=== PATIENT | male | born 1965 | race American Indian/Alaskan Native ===

== ENCOUNTER 2024-05-04 14:25 | Outpatient (AMB) | payer MEDICAID, SELFPAY ==
[2024-05-04 14:47] VITALS: BP 122/78; PULSE 85; RESP 19; TEMP 36.8; O2SAT 94; BMI 36.4
--- NOTE | 2024-05-04 14:47 | PD.ORTHCLVIS ---
Vital signs 05/04/24 14:47 Height 1.8 m Height Method Stated Weight 118.501 kg Weight Measurement Method Standing Scale BMI 36.4 BP 122/78 Blood Pressure Source Automatic Cuff Blood Pressure Location Right Upper Arm Position Sitting Respiration 19 Pulse 85 Pulse Source Monitor Temp 98.3 F Temp Source Temporal Artery Scan Pulse Oximetry (%) 94 L Oxygen Delivery Method Room Air Med/Allergies Allergies & Medications Allergies No Known Allergies Allergy (Verified 05/04/24 14:48) Medication Reconciliation Unobtainable 05/04/24 [History Confirmed 05/04/24] Subjective Visit Visit for: new patient, follow up visit and knee (BILATERAL) Immunization / Flu Flu Vaccine in the Last 12 Months: No Flu Vaccine Exclusion Criteria: Refused by Patient History of Present Illness Chief complaint: BILATERAL KNEE PAIN Date of injury / onset of symptoms: LEFT (7YEARS) RIGHT (4MONTHS) Patient is a pleasant 59-year-old male with right knee pain worse than the left. This been ongoing for over 6 months. He is an avid [employer] and injured it while bowling. He has tried ibuprofen. Has not had any injections within the last 6 years. Personal History Occupation: RETIRED Hobbies: BOWLING/GOLF Pain Pain level (0-10): 2 Pain duration: COMES AND GOES Pain location: inside (medial) and other (specify) (DISCOMFORT) Pain quality: aching and other (specify) (POPPING) Pain timing: increases with activity Associated signs & symptoms: weakness Ambulatory data Ambulatory device: none Treatments Number of previous injections: 2 (LEFT KNEE) Improvement with previous injections: No Improvement with PT: No Improvement with NSAIDS: no Review of Systems Review of Systems: All systems negative unless otherwise noted in HPI. Exam Exam Patient is in no acute distress and is cooperative with the examination today. Breathing is nonlabored. In no respiratory distress. Bilateral extremities were evaluated and demonstrates sensation intact to light touch. Palpable pedal pulses are present. No significant edema is present. Bilateral hips were examined. The patient has no pain with log roll of the hips. Internal rotation to 30 degrees and external rotation to 30 degrees is painless. Negative FADIR. The left knee was examined. The left knee is in [varus] alignment. Range of motion from [0-115] degrees. Knee is stable to varus and valgus as well as AP translation with <5mm. Patient has a [negative] McMurrays. There is [no] pain with patellofemoral compression and [no] crepitus noted. The knee is [tender] to palpation [medially]. The right knee was also examined. The right knee is in [varus] alignment. Range of motion from [0-120] degrees. Knee is stable to varus and valgus as well as AP translation with <5mm. Patient has a [negative] McMurrays. There is [no] pain with patellofemoral compression and [no] crepitus noted. The knee is [tender] to palpation [medially]. Assessment and Plan Problem List (1) Bilateral knee pain: Status: Acute Plan: Patient is a 59-year-old male with bilateral knee pain and bilateral knee arthritis. We discussed nonoperative and operative options. I would like to for start by getting weightbearing x-rays to see the severity of the arthritis. We will likely continue with conservative treatment at the next visit. I will also likely prescribe him anti-inflammatories (2) Degenerative arthritis of knee, bilateral: Status: Acute Office Procedures GNS Level of Care Nursing/Assessment Patient Status: Initial/New Patient Nursing Assessment/Reassesment: Medication Reconciliation, Update PMH in EMR and Vital Signs Coordination of Care: Complex Care and Chronic Disease 1-5, Education Complex Pt/Fam, Consent,records obtained, informed consent, 1 Ins Authorization, Lab and Imaging orders, Results/Orders obtained and Staff clarify orders New Patient Charge New Patient Point Assignment: 1124 New Patient Point Charge: TERRA COTTA ROOFER Level 4 ([id number]) Past Medical History Past Medical History Have you ever been diagnosed with any of the following: Respiratory Problems Smoking: No Smoking Exposure: No
== END 2024-05-04 15:06 | disposition home or self-care (01) ==
LOC: HODSRG 14:25
PROVIDERS: PCP Physician Assistant; Referring Provider Physician Assistant; Supervising Provider Orthopaedic Surgery Adult Reconstructive Orthopaedic Surgery; Visit Provider Orthopaedic Surgery Adult Reconstructive Orthopaedic Surgery
DX: M25.562 Pain in left knee (principal); M25.561 Pain in right knee; M17.0 Bilateral primary osteoarthritis of knee
CPT/HCPCS: 99204; G0463

== ENCOUNTER 2024-06-03 10:13 | Outpatient (AMB) | payer MEDICAID, SELFPAY ==
[2024-06-03 10:49] VITALS: BP 97/64; PULSE 83; RESP 18; TEMP 36.1; O2SAT 94; BMI 35.0
--- NOTE | 2024-06-03 10:49 | RHCORTHONT_ITS ---
Vital signs 06/03/24 10:49 Height 1.8 m Height Method Stated Weight 113.54 kg Weight Measurement Method Standing Scale BMI 35.0 BP 97/64 Blood Pressure Source Automatic Cuff Blood Pressure Location Right Upper Arm Position Sitting Respiration 18 Pulse 83 Pulse Source Monitor Temp 96.9 F Temp Source Temporal Artery Scan Pulse Oximetry (%) 94 L Oxygen Delivery Method Room Air Med/Allergies Allergies & Medications Allergies No Known Allergies Allergy (Verified 06/03/24 10:50) Medication Reconciliation meloxicam 7.5 mg tablet 7.5 mg PO QDAY #45 tabs 06/03/24 [Rx] Exam Exam Patient is in no acute distress and is cooperative with the examination today. Breathing is nonlabored. In no respiratory distress. Bilateral extremities were evaluated and demonstrates sensation intact to light touch. Palpable pedal pulses are present. No significant edema is present. Bilateral hips were examined. The patient has no pain with log roll of the hips. Internal rotation to 30 degrees and external rotation to 30 degrees is painless. Negative FADIR. The left knee was examined. The left knee is in [varus] alignment. Range of motion from [0-115] degrees. Knee is stable to varus and valgus as well as AP translation with <5mm. Patient has a [negative] McMurrays. There is [no] pain with patellofemoral compression and [no] crepitus noted. The knee is [tender] to palpation [medially]. The right knee was also examined. The right knee is in [varus] alignment. Range of motion from [0-120] degrees. Knee is stable to varus and valgus as well as AP translation with <5mm. Patient has a [negative] McMurrays. There is [no] pain with patellofemoral compression and [no] crepitus noted. The knee is [tender] to palpation [medially]. X-rays demonstrate left greater than right medial arthritis. There is joint space narrowing Assessment and Plan Problem List (1) Bilateral knee pain: Status: Acute Plan: Patient is a 59-year-old male with bilateral knee pain and bilateral knee arthritis. We discussed nonoperative Options for his moderate arthritis. We discussed meloxicam and anti-inflammatories. We can give him a cortisone injection if needed. He would like to hold off on it for now. (2) Degenerative arthritis of knee, bilateral: Status: Acute Office Procedures GNS Level of Care Nursing/Assessment Patient Status: Established Patient Nursing Assessment/Reassesment: Medication Reconciliation, Update PMH in EMR and Vital Signs Coordination of Care: Complex Care and Chronic Disease 1-5, Education Complex Pt/Fam, Consent,records obtained, informed consent, Results/Orders obtained and Staff clarify orders Established Patient Charge Established Patient Point Assignment: 95 Established Patient Point Charge: EP Level 3 (80-115) MA Intake Visit Data Collection New Patient or Established: Established Patient (seen at [facility] within 3 years) Reason for Visit:: F/U XRAYS Seen by Clinical Staff ONLY (RN/MA): No Verbal consent obtained for Telemed visit?: No Coast[employer] Officer Required: No PCP or OBGYN visit in last 3 months: Yes Hx Now: No Do You Feel Safe at Home: Yes Authorities Contacted: N/A Questionairres Past Medical History Past Medical History Have you ever been diagnosed with any of the following: Respiratory Problems Smoking: No Smoking Exposure: No Subjective Visit Visit for: follow up visit and x-rays Immunization / Flu Flu Vaccine in the Last 12 Months: No Flu Vaccine Exclusion Criteria: No Exclusion Criteria History of Present Illness Chief complaint: F/U XRAYS Patient is a pleasant 59-year-old male who is here for x-ray results. He has not had any injections recently. He reports the pain is still tolerable. He would like to try anti-inflammatories at this time Pain Pain level (0-10): 0 Pain quality: aching and other (specify) (DISCOMFORT) Pain timing: other (specify) Associated signs & symptoms: none Ambulatory data Ambulatory device: none Treatments Improvement with previous injections: No Improvement with PT: No Improvement with NSAIDS: no Review of Systems Review of Systems: All systems negative unless otherwise noted in HPI.
== END 2024-06-03 11:40 | disposition home or self-care (01) ==
LOC: HODSRG 10:13
PROVIDERS: PCP Physician Assistant; Referring Provider Physician Assistant; Supervising Provider Orthopaedic Surgery Adult Reconstructive Orthopaedic Surgery; Visit Provider Orthopaedic Surgery Adult Reconstructive Orthopaedic Surgery
DX: M25.561 Pain in right knee (principal); M25.562 Pain in left knee; M17.0 Bilateral primary osteoarthritis of knee
CPT/HCPCS: 99213; G0463